=== PATIENT | male | born 1985 | race Caucasian/White ===

== ENCOUNTER 2016-10-25 09:45 | Outpatient (CLI) | payer BC ==
[~2016-10-25] VITALS: Ht 188 cm; Wt 104.3 kg
[~2016-10-25 09:45] MED LIST: HYDR-3729 PO; LORA10TA76 PO
--- OUTSIDE RECORDS SUMMARY | 2016-10-25 09:48 | XMS REPORT | Continuity of Care Document ---
Author Author [facility] Organization [facility] Address Unknown Phone Unavailable Care Team Providers Care Gold Letterer Name Role Phone TAMARA SCHMIDT DO PCP Insurance Providers Payer Name Policy Number Subscriber Name Relationship [facility] [id number] Karime Peña 18 Self / Same As Patient Advance Directives Directive Response Recorded Date/Time Advance Directives No 01/29/16 1:41pm Health Care Power of Pipeline Dispatcher No 01/29/16 1:41pm Organ Donor No 01/29/16 1:41pm Resuscitation Status Full Code 01/29/16 1:41pm Problems No problem information available. Medications Current Home Medications Medication Dose Units Route Directions Days/Qty Instructions Start Date Loratadine 10 Mg 10 Mg Oral Daily 07/19/14 Hydrocodone/Acetaminophen 1 Each 1 Tab Oral Every 4HRS as needed for Pain 07/19/14 Social History Social History Problem Response Recorded Date/Time Recent Foreign Travel No 01/29/2016 1:40pm Hospital Discharge Instructions No hospital discharge instructions. Plan of Care Discharge Date 01/29/16 2:06pm Instructions/Education Provided DR. CHARLES-POST EPIDURAL INST Prescriptions See Medication Section Functional Status No functional status results. Allergies, Adverse Reactions, Alerts Allergen Type Severity Reaction Status Last Updated Penicillins ([id number]) Allergy Unknown Active 01/08/07 Immunizations No immunization records. Vital Signs Acute Vital Signs Vital Response Date/Time Temperature (Fahrenheit) 97.0 degrees F (97.6 - 99.5) 01/29/2016 1:42pm Temperature (Calculated Celsius) 36.12244 degrees C (36.4 - 37.5) 01/29/2016 1:42pm Temperature Source Tympanic 01/29/2016 1:42pm Pulse Rate (adult) 70 bpm (60 - 90) 01/29/2016 2:03pm Respiratory Rate 17 bpm (12 - 24) 01/29/2016 2:03pm O2 Sat by Pulse Oximetry 99 % (88 - 100) 01/29/2016 2:03pm Blood Pressure 149/94 mm Hg 01/29/2016 2:03pm Blood Pressure Mean 104 mm Hg 01/29/2016 1:42pm Pain Pain Intensity 6 01/29/2016 2:03pm Height (Feet) 6 feet 01/29/2016 1:41pm Height (Inches) 1.00 inches 01/29/2016 1:41pm Height (Calculated Centimeters) 185.850367 cm 01/29/2016 1:41pm Weight (Pounds) 250 pounds 01/29/2016 1:41pm Weight (Ounces) 0.0 oz 01/29/2016 1:41pm Weight (Calculated Grams) 240629.094 gm 01/29/2016 1:41pm Weight (Calculated Kilograms) 113.812045 kilograms 01/29/2016 1:41pm Calculated BMI 33.0 01/29/2016 1:41pm Results No known relevant diagnostic tests, laboratory data and/or discharge summary. Procedures No known history of procedures. Encounters Encounter Location Arrival/Admit Date Discharge/Depart Date Attending Provider Departed Clinic [facility] 01/29/16 1:17pm 01/29/16 2: 06pm WEN CHARLES MD
[2016-10-25] MEDS ORDERED: BUPIVACAINE 0.25% 30 ML (SENSORCAINE) VIAL ONE (10:17)
[2016-10-25] MEDS ORDERED: TRIAMCINOLONE ACET (KENALOG-40) 40 MG/ML 1 ML VIAL ONE (10:17)
[2016-10-25 13:03] VITALS: BP 156/103
[2016-10-25 13:42] VITALS: BP 159/98
--- NOTE | 2016-10-25 14:51 | Pain Medicine-Procedure ---
Procedure Pre-Op/Post-Op Diagnosis Diagnosis: disc disorder with radiculopathy, lumbar Indications for Operation low back pain Attending Surgeon Trish Procedure Date of Service: Oct 25, 2016 PROCEDURE: Caudal Epidural Steroid Injection with catheter under Flouroscopic Guidance PROCEDURE NOTE: After obtaining written informed consent patient was taken to the procedure room. Vital signs were monitored through out the procedure. A time out was performed. The patient was placed in the prone position on fluoroscopy table. The lower back above the caudal space was prepped with chloraprep and draped in the usual sterile fashion. The skin over the sacral hiatus was identified under fluoroscopic guidance and infiltrated with 1% lidocaine for local anesthesia via 25 gauge needle. An 17-gauge epimed needle was used to access the epidural space under fluoroscopic guidance and was then advanced into the epidural space under fluoroscopic guidance in the AP view. The epimed catheter was then advanced under flourospopic guidance to the L5-S1 interspace. There was no paresthesia with catheter placement. After negative aspiration 1 cc of the contrast dye was injected through the needle with good spread of the medication in the epidural space at the appropriate levels. Again, after negative aspiration, 80 mg of kenalog with 2 cc of 0.25% marcaine and 2 mL's of preservative free normal saline was injected. There was no evidence of CSF, paresthesia or heme during the procedure. The catheter and needle were withdrawn as a unit and the tip was noted to be intact upon removal. Skin was cleaned and a sterile dressing was applied. Following the procedure the patient's vital signs were stable. The patient was discharged home after a brief period of observation with no new neuologic deficits. Complications none WEN CHARLES MD Oct 25, 2016 2:51 pm
== END 2016-10-25 13:44 | disposition home or self-care (01) ==
LOC: CARD 09:45
PROVIDERS: ATTEND Pain Medicine Pain Medicine
DX: M51.16 Intervertebral disc disorders with radiculopathy, lumbar region (principal); M96.1 Postlaminectomy syndrome, not elsewhere classified
CPT/HCPCS: 62323

== ENCOUNTER 2016-12-05 20:02 | Emergency (ER) | payer BC ==
[~2016-12-05] VITALS: Ht 185.4 cm; Wt 113.4 kg
[2016-12-05] MEDS ORDERED: LIDOCAINE 2% 20 ML (XYLOCAINE) VIAL ONE (20:38)
[2016-12-05] MEDS ORDERED: RX-TRIMETH/SULFA. 160-800 MG (BACTRIM DS) TAB PPK#2 PO ONE (21:10)
[2016-12-05] MEDS ORDERED: RX-NAPROXEN (NAPROSYN) 250 MG TAB PPK#4 PO ONE (21:10)
[2016-12-05] MEDS ORDERED: RX-NAPROXEN (NAPROSYN) 250 MG TAB PPK#4 PO STA (21:11)
[2016-12-05] MEDS ORDERED: RX-TRIMETH/SULFA. 160-800 MG (BACTRIM DS) TAB PPK#2 PO STA (21:11)
[2016-12-05] MEDS ORDERED: NAPR500T3 PO (21:14)
[2016-12-05] MEDS ORDERED: SULF1TAB35 PO (21:14)
--- NOTE | 2016-12-05 21:14 | ED Upper Extremity ---
General Chief Complaint: Laceration Stated Complaint: R HAND CUT Nursing Triage Note: PT HAS LAC TO L THUMB FROM WINDOW BREAKING Nursing Sepsis Screen: No Definite Risk Source: patient History of Present Illness Time seen by provider: 20:30 Initial Comments PT STATES HE WAS HOLDING A WINDOW AND IT BROKE, CUTTING BOTH OF HIS THUMBS OCCURRED TODAY AT HOME AROUND 1500 INITIALLY WENT TO [facility], AND HAD 3 SUTURES PLACED IN LEFT THUMB, BUT STATES HE WAS SENT HERE BECAUSE THE LACERATION ON RIGHT THUMB WAS TOO DEEP PT DID RECEIVE A TETANUS VACCINATION AT [facility] NO PARESTHESIAS OR MOTOR DEFICITS NO PRIOR INJURY TO RIGHT THUMB PT IS RIGHT HANDED Allergies and Home Medications Allergies Coded Allergies: Penicillins (Verified Allergy, Unknown, 01/08/07) Home Medications Hydrocodone/Acetaminophen 1 Each Tablet, 1 TAB PO Q4H PRN for PAIN, (Reported) Loratadine 10 Mg Tablet, 10 MG PO DAILY, (Reported) Naproxen 500 Mg Tablet, 500 MG PO BID, #20 Prescribed by: LIDIA KUNZ on 12/05/162113 Sulfamethoxazole/Trimethoprim 1 Each Tablet, 1 EACH PO BID, #20 Prescribed by: LIDIA KUNZ on 12/05/162113 Constitutional: no symptoms reported Musculoskeletal: see HPI Skin: see HPI Psychiatric/Neurological: No Symptoms Reported, Anxiety Past Qvacroy-Scbtjl-Xuiuep Hx Patient Social History Alcohol Use: Denies Use Recreational Drug Use: Yes (POT OCCSIONALLY) Smoking Status: Never a Smoker Recent Foreign Travel: No Contact w/Someone Who Travel: No Recent Infectious Disease Expo: No Recent Hopitalizations: No Immunizations Up To Date Tetanus Booster (TDap): Less than 5yrs Surgeries HX Surgeries: No Respiratory Hx Respiratory Disorders: No Cardiovascular Hx Cardiac Disorders: No Neurological Hx Neurological Disorders: No Genitourinary Hx Genitourinary Disorders: No Gastrointestinal Hx Gastrointestinal Disorders: No Musculoskeletal Hx Musculoskeletal Disorders: No Endocrine Hx Endocrine Disorders: No HEENT HX ENT Disorders: No Cancer Hx Cancer: No Psychosocial Hx Psychiatric Problems: No Integumentary HX Skin/Integumentary Disorder: No Blood Transfusions Hx Blood Disorders: No Physical Exam Vital Signs Vital Sign - Last 12Hours 12/05/16 12/05/16 20:30 21:26 Temp 97.4 Pulse 76 Resp 16 B/P (MAP) 161/106 Pulse Ox 99 Capillary Refill : Less Than 3 Seconds General Appearance: WD/WN, no apparent distress, other (ANXIOUS) Hand: laceration (RIGHT THUMB WITH 2 CM LACERATION TO PAD OF THUMB. HAS MILD OOZING, CONTROLLED BY PRESSURE. MOTOR/SENSORY/VASCULAR INTACT. LEFT THUMB PAD WITH REPAIRED 2 CM LACERATION WITH 3 SUTURES. NO BLEEDING. 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, no motor/sensory deficits, alert, oriented x 3 Skin: normal color, warm/dry, other (LACERATION ABOVE) Laceration Repair : Other Wound Location LEFT THUMB Wound Length (cm): 2 Wound's Depth, Shape: linear, sub Q Wound Explored: clean Betadine Prep?: No (BETASEPT) Anesthesia: Lidocaine w/ Epi Suture: Ethlion Suture Size: 4-0 Number of Sutures: 5 Sterile Dressing Applied?: Yes Progress/Results/Core Measures Results/Orders My Orders Orders - LIDIA KUNZ DO Lidocaine 2% Injection 20 Ml (Xylocaine (12/05/16 20:38) Rx-Trimeth/Sulfameth Ds Tab (Rx-Bactrim/ (12/05/16 21:11) Rx-Naproxen (Rx-Naprosyn) (12/05/16 21:11) Wound Dressing-Ed (12/05/16 21:14) Rx-Naproxen (Rx-Naprosyn) (12/05/16 21:10) Rx-Trimeth/Sulfameth Ds Tab (Rx-Bactrim/ (12/05/16 21:10) Medications Given in ED Current Medications Medications Dose Ordered Sig/Oz Route Start Time Stop Time Status Last Admin Dose Admin Lidocaine HCl 20 ml STK-MED ONCE .ROUTE 12/05/16 20:38 12/05/16 20:42 DC 12/05/16 20:54 10 ML Vital Signs/I&O Vital Sign - Last 12Hours 12/05/16 12/05/16 20:30 21:26 Temp 97.4 97.4 Pulse 76 76 Resp 16 16 B/P (MAP) 161/106 Pulse Ox 99 Blood Pressure Mean: 124 Departure Impression Impression: Primary Impression: Laceration of right thumb Disposition: 01 HOME, SELF-CARE Condition: Stable Departure-Patient Inst. Referrals: TAMARA SCHMIDT DO (PCP/Family) Primary Care Physician Patient Instructions: Laceration Repair With Stitches (DC) Add. Discharge Instructions: LEAVE DRESSING IN PLACE FOR 24 HOURS, THEN CLEAN TWICE A DAY WITH ANTIBACTERIAL SOAP AND WATER ON A Q-TIP, APPLY FRESH DRESSING TWICE A DAY OTHERWISE KEEP CLEAN AND DRY SUTURES OUT IN 10 DAYS--RETURN TO ER FOR REMOVAL All discharge instructions reviewed with patient and/or family. Voiced understanding. Scripts Naproxen (Naproxen) 500 Mg Tablet 500 MG PO BID, #20 TAB Prov: LIDIA KUNZ DO 12/05/16 Sulfamethoxazole/Trimethoprim (Bactrim Ds Tablet) 1 Each Tablet 1 EACH PO BID, #20 TAB Prov: LIDIA KUNZ DO 12/05/16 LIDIA KUNZ DO Dec 05, 2016 21:14
[2016-12-05 21:26] VITALS: BP 149/88
== END 2016-12-05 21:26 | disposition home or self-care (01) ==
LOC: EDUNIT# 20:02 → ER 20:04
DX: S61.011A Laceration without foreign body of right thumb without damage to nail, initial encounter (principal); W25.XXXA Contact with sharp glass, initial encounter; Y99.8 Other external cause status

== ENCOUNTER 2019-07-16 14:21 | Emergency (ER) | payer SELFPAY ==
[~2019-07-16] VITALS: Ht 187 cm; Wt 113.0 kg
[~2019-07-16 14:21] MED LIST changes: +NAPR-915 PO; +SULF1TAB35 PO
--- NOTE | 2019-07-16 14:35 | ED Lower Extremity ---
General Chief Complaint: Laceration Stated Complaint: L FOOT PAIN Nursing Triage Note: ARRIVED VIA AMB TO ROOM 07 WITH COMPLAINTS OF LACERATION TO LEFT GREAT TOE AFTER HIS CHAINSAW SLIPPED AND HIT HIS FOOT. Nursing Sepsis Screen: No Definite Risk Source: patient Exam Limitations: no limitations History of Present Illness Date Seen by Provider: Jul 16, 2019 Time Seen by Provider: 14:32 Initial Comments To ER with laceration to left great toe after his chainsaw slipped just prior to arrival cutting through his boot his sock and into the toe. Onset: just prior to arrival Severity: moderate Pain/Injury Location: left 1st toe Modifying Factors: Worse With Movement Allergies and Home Medications Allergies Coded Allergies: Penicillins (Verified Allergy, Unknown, 01/08/07) Home Medications Cephalexin 500 Mg Capsule, 500 MG PO QID Prescribed by: FERMÍN LOZANO on 07/16/19 1520 Ciprofloxacin HCl 500 Mg Tablet, 500 MG PO BID Prescribed by: FERMÍN LOZANO on 07/16/19 1520 Hydrocodone/Acetaminophen 1 Each Tablet, 1 TAB PO Q4-6HR Prescribed by: FERMÍN LOZANO on 07/16/19 1520 Patient Home Medication List Home Medication List Reviewed: Yes Review of Systems Constitutional: see HPI EENTM: see HPI Respiratory: no symptoms reported Cardiovascular: no symptoms reported Genitourinary: no symptoms reported Musculoskeletal: no symptoms reported Skin: no symptoms reported Psychiatric/Neurological: No Symptoms Reported Past Vohhmkw-Tauabl-Heeplh Hx Patient Social History Recent Foreign Travel: No Contact w/Someone Who Travel: No Recent Infectious Disease Expo: No Recent Hopitalizations: No Immunizations Up To Date Tetanus Booster (TDap): Less than 5yrs Physical Exam Vital Signs Vital Signs - First Documented 07/16/19 14:26 Temp 37.0 Pulse 121 Resp 16 B/P (MAP) 183/129 (147) Pulse Ox 98 O2 Delivery Room Air Capillary Refill : Less Than 3 Seconds Height, Weight, BMI Height: 6'1.00" Weight: 250lbs. 0.0oz. 113.192066et; 32.00 BMI Method:Stated General Appearance: WD/WN, no apparent distress Respiratory: no respiratory distress, no accessory muscle use Hips: bilateral hip non-tender, bilateral hip normal inspection, bilateral hip normal range of motion Legs: bilateral leg non-tender, bilateral leg normal inspection, bilateral leg normal range of motion Knees: bilateral knee non-tender, bilateral knee normal inspection, bilateral knee normal range of motion Ankles: bilateral ankle non-tender, bilateral ankle normal inspection, bilateral ankle normal range of motion Feet: left foot pain, left foot soft tissue tenderness, left foot other (3-4 cm laceration extending from the distal medial great toe left foot to the proximal aspect left toe lateral side.) Procedures/Interventions Wound Location: Lower Extremities Wound Length (cm): 3 Wound's Depth, Shape: linear, sub Q, tendon Wound Explored: clean Irrigated w/ Saline (ccs): 200 Anesthesia: 1% Lidocaine Suture: Prolene Suture Size: 4-0 Number of Sutures: 4 Layer Closure?: 1 Number Deep Layer Sutures: 0 Progress Local anesthesia using 1% lidocaine without epinephrine totaling 4 mL. Wound then scrubbed with chlorhexidine/saline then irrigated with 200 mL of the same. There is a visualized extensor tendon laceration partial, however he maintains ability to dorsiflex the great toe and normal sensation of the toe distally. This was closed with 4 simple sutures loosely size 4-0 Prolene, wrapped with antibiotic ointment and gauze and Coban. Progress/Results/Core Measures Results/Orders My Orders Orders - FERMÍN LOZANO APRN Lidocaine 1% Inj 20 Ml (Xylocaine 1% Inj (07/16/19 14:45) Hydrocodone/Apap 5/325 Tablet (Lortab 5 (07/16/19 14:45) Medications Given in ED Current Medications Medications Dose Ordered Sig/Oz Route Start Time Stop Time Status Last Admin Dose Admin Acetaminophen/ Hydrocodone Bitart 1 tab ONCE ONCE PO 07/16/19 14:45 07/16/19 14:46 DC 07/16/19 14:35 1 TAB Lidocaine HCl 20 ml ONCE ONCE INJ 07/16/19 14:45 07/16/19 14:46 DC 07/16/19 14:35 20 ML Vital Signs/I&O 07/16/19 07/16/19 14:26 15:25 Temp 37.0 37.0 Pulse 121 81 Resp 16 16 B/P (MAP) 183/129 (147) 135/81 (147) Pulse Ox 98 98 O2 Delivery Room Air Room Air Blood Pressure Mean: 147 POS Departure Communication (Admissions) Recommended x-ray of the foot to rule out bony injury, patient states "it is not broken, I don't need an x-ray". He doesn't want the expense of the x-ray either. He just wants it stitched up and sent home. Impression Primary Impression: Toe laceration Qualified Codes: S91.112A - Laceration without foreign body of left great toe without damage to nail, initial encounter Disposition: HOME, SELF-CARE Condition: Stable Departure-Patient Inst. Decision time for Depature: 15:18 Referrals: QUIANA ORANTES DPM, BRIAN J MD NO,LOCAL PHYSICIAN (PCP) Primary Care Physician ADAL BUNCH MD, CORIN Q DPM ZAFUTA, MICHAEL P MD Patient Instructions: Laceration Repair With Stitches (DC), Wound Care Add. Discharge Instructions: 1. Return to ER promptly for any redness swelling or sign of infection 2. Antibiotics as directed and pain medication as directed. Change the dressing daily for one week. After this you can place a simple Band-Aid over this instead of the bulky dressing materials that she were sent home with. You can shower leading water run over this after removing the dressing tonight, but don't soak it in water such as a hot tub bath tub or swimming pool. Otherwise return to the emergency room in 10-12 days to have the stitches removed. I do suspect a partial extensor tendon injury of the great toe, you can call one of the orthopedists listed for follow-up. All discharge instructions reviewed with patient and/or family. Voiced understanding. Scripts Ciprofloxacin HCl (Ciprofloxacin HCl) 500 Mg Tablet 500 MG PO BID, #14 TAB Prov: FERMÍN LOZANO APRN 07/16/19 Cephalexin (Keflex) 500 Mg Capsule 500 MG PO QID, #28 CAP Prov: FERMÍN LOZANO APRN 07/16/19 Hydrocodone/Acetaminophen (Benedict 5-325 Tablet) 1 Each Tablet 1 TAB PO Q4-6HR for Pain MDD 10 TABS for 7 Days, #14 TAB Prov: FERMÍN LOZANO APRN 07/16/19 FERMÍN LOZANO APRN Jul 16, 2019 14:35 POS
[2019-07-16] MEDS ORDERED: HYDROcodone/APAP 5 MG/325 MG (LORTAB) TAB PO ONE (14:45)
[2019-07-16] MEDS ORDERED: LIDOCAINE 1% INJ 20 ML 20 ML VIAL INJ ONE (14:45)
[2019-07-16] MEDS ORDERED: HYDR-4226 PO (15:20)
[2019-07-16] MEDS ORDERED: CEPH-507 PO (15:20)
[2019-07-16] MEDS ORDERED: CIPR500T4 PO (15:20)
--- NOTE | 2019-07-16 15:20 | NUR ---
FERMÍN REPORTS PT REFUSED X-RAY.
[2019-07-16 15:25] VITALS: BP 135/81
== END 2019-07-16 15:25 | disposition home or self-care (01) ==
LOC: EDUNIT# 14:21 → ER 14:23
DX: S91.112A Laceration without foreign body of left great toe without damage to nail, initial encounter (principal); Z88.0 Allergy status to penicillin; W29.3XXA Contact with powered garden and outdoor hand tools and machinery, initial encounter
CPT/HCPCS: 12041

== ENCOUNTER 2019-10-30 02:18 | Emergency (ER) | payer SELFPAY ==
[~2019-10-30] VITALS: Ht 187.9 cm; Wt 113.3 kg
[~2019-10-30 02:18] MED LIST changes: +CEPH-507 PO; +CIPR500T4 PO; +HYDR-4226 PO
[2019-10-30] MEDS ORDERED: LIDOCAINE 1% INJ 20 ML 20 ML VIAL INJ ONE (02:30)
--- NOTE | 2019-10-30 03:08 | ED Lower Extremity ---
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 Patient is intoxicated and was working in his shop when the incident happened. He has a gaping laceration on the dorsum of the left hand that is actively bleeding and more minor lacerations over the dorsum of the left fifth finger and the dorsum of the right middle finger. He has minor abrasion to the left thigh. He reports being up-to-date on his tetanus immunization. Allergies and Home Medications Allergies Coded Allergies: Penicillins (Verified Allergy, Unknown, 01/08/07) Home Medications Cephalexin 500 Mg Capsule, 500 MG PO QID Prescribed by: FERMÍN LOZANO on 07/16/19 1520 Ciprofloxacin HCl 500 Mg Tablet, 500 MG PO BID Prescribed by: FERMÍN LOZANO on 07/16/19 1520 Hydrocodone/Acetaminophen 1 Each Tablet, 1 TAB PO Q4-6HR Prescribed by: FERMÍN LOZANO on 07/16/19 1520 Patient Home Medication List Home Medication List Reviewed: Yes Review of Systems Constitutional: see HPI EENTM: no symptoms reported Respiratory: no symptoms reported Cardiovascular: no symptoms reported Gastrointestinal: no symptoms reported Genitourinary: no symptoms reported Musculoskeletal: see HPI Skin: see HPI Psychiatric/Neurological: See HPI Past Ngejfkh-Qvhybz-Gzskdg Hx Past Med/Social Hx: Reviewed Nursing Past Med/Soc Hx Patient Social History Drug of Choice: POT Recent Foreign Travel: No Contact w/Someone Who Travel: No Recent Infectious Disease Expo: No Recent Hopitalizations: No Immunizations Up To Date Tetanus Booster (TDap): Less than 5yrs Past Medical History Surgeries: No Respiratory: No Cardiac: No Neurological: No Gastrointestinal: No Musculoskeletal: No Endocrine: No Cancer: No Psychosocial: No Integumentary: No Blood Disorders: No Physical Exam Vital Signs Vital Signs - First Documented 10/30/19 10/30/19 02:21 03:11 Temp 37.0 Pulse 92 Resp 18 B/P (MAP) 145/97 (113) Pulse Ox 97 Capillary Refill : Less Than 3 Seconds Height, Weight, BMI Height: 6'1.00" Weight: 250lbs. 0.0oz. 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 There were no exposed tendons on exploration of the wounds. Patient had full flexion and extension range of motion in the hands and fingers. Distal sensation and capillary refill was intact. Procedures/Interventions Wound Location: Upper Extremities Other Wound Location Dorsum of left hand Wound Length (cm): 3 Wound's Depth, Shape: linear, sub Q Wound Explored: clean Irrigated w/ Saline (ccs): 300 Betadine Prep?: Yes Anesthesia: 1% Lidocaine Volume Anesthetic (ccs): 3 Suture: Prolene Suture Size: 4-0 Number of Sutures: 5 Sterile Dressing Applied?: Yes Wound Location: Upper Extremities Other Wound Location Dorsum of the left fifth finger Wound Length (cm): 1.5 Wound's Depth, Shape: linear, irregular, sub Q Wound Explored: clean Irrigated w/ Saline (ccs): 200 Betadine Prep?: Yes Anesthesia: 1% Lidocaine Suture: Prolene Suture Size: 4-0 Number of Sutures: 2 Sterile Dressing Applied?: Yes Progress/Results/Core Measures Results/Orders My Orders Orders - BLU VALENTINO MD Lidocaine 1% Inj 20 Ml (Xylocaine 1% Inj (10/30/19 02:30) Medications Given in ED Current Medications Medications Dose Ordered Sig/Oz Route Start Time Stop Time Status Last Admin Dose Admin Lidocaine HCl 20 ml ONCE ONCE INJ 10/30/19 02:30 10/30/19 02:31 DC 10/30/19 02:30 20 ML Vital Signs/I&O 10/30/19 10/30/19 02:21 03:11 Temp 37.0 Pulse 92 94 Resp 18 18 B/P (MAP) 145/97 (113) 136/91 (113) Pulse Ox 97 97 Blood Pressure Mean: 113 Progress Progress Note : Progress Note Bilateral hand x-rays were ordered to rule out fracture or foreign body. Patient was rather tender in the areas around his lacerations. However, patient absolutely refused x-rays. The 2 lacerations on the left hand were anesthetized with lidocaine, scrubbed with normal saline and chlorhexidine, and irrigated with normal saline. They were then repaired with 4-0 Prolene. The flap laceration on the right middle finger was cleaned with chlorhexidine and normal saline and irrigated with normal saline and then covered with antibiotic ointment and dressing. Patient reported being certain of up-to-date status on tetanus immunization. Departure Impression Primary Impression: Laceration of left hand Qualified Codes: S61.412A - Laceration without foreign body of left hand, initial encounter Additional Impressions: Laceration of right hand Qualified Codes: S61.411A - Laceration without foreign body of right hand, initial encounter Alcohol intoxication Qualified Codes: F10.920 - Alcohol use, unspecified with intoxication, unco mplicated Abrasion, left thigh, initial encounter Disposition: 01 HOME, SELF-CARE Condition: Improved Departure-Patient Inst. Decision time for Depature: 03:05 Referrals: NO,LOCAL PHYSICIAN (PCP/Family) Primary Care Physician Patient Instructions: Laceration Repair With Stitches (DC) Add. Discharge Instructions: Monitor your wounds for signs of infection such as increasing redness, increasing swelling, puslike drainage, or fever. Return to care promptly. See symptoms. Keep your wounds clean and dry. Cover when working or when in dirty environments. You may shower and allow soapy water to run over the wound but do not scrub directly on the stitches and do not submerge until stitches are removed. You may take Tylenol and/or ibuprofen for pain. Return in 8-10 days to have sutures removed. You do not need an appointment. All discharge instructions reviewed with patient and/or family. Voiced understanding. BLU VALENTINO MD Oct 30, 2019 03:08
[2019-10-30 03:11] VITALS: BP 136/91
== END 2019-10-30 03:11 | disposition home or self-care (01) ==
LOC: EDUNIT# 02:18 → ER 02:20
DX: S61.412A Laceration without foreign body of left hand, initial encounter (principal); S61.217A Laceration without foreign body of left little finger without damage to nail, initial encounter; S61.212A Laceration without foreign body of right middle finger without damage to nail, initial encounter; S70.312A Abrasion, left thigh, initial encounter; F10.129 Alcohol abuse with intoxication, unspecified; Z88.0 Allergy status to penicillin; W31.89XA Contact with other specified machinery, initial encounter; Y92.59 Other trade areas as the place of occurrence of the external cause
CPT/HCPCS: 12002

== ENCOUNTER 2019-12-12 22:42 | Emergency (ER) | payer SELFPAY ==
[~2019-12-12] VITALS: Ht 187 cm; Wt 114.2 kg
[2019-12-12] MEDS ORDERED: CEFEPIME INJECTION 2,000 MG in WATER (STERILE) FOR INJECTION 10 ML IV ONE (23:00)
[2019-12-12] MEDS ORDERED: VANCOMYCIN INJECTION 1,000 MG in NS (IVPB) 250 ML IV SCH (23:00)
[2019-12-12 23:09] LABS: BASOPHILS % (AUTO) 0 % (0-10); EOSINOPHILS # (AUTO) 0.5 10^3/uL (0.0-0.3); EOSINOPHILS % (AUTO) 5 % (0-10); HEMATOCRIT 44 % (40-54); HEMOGLOBIN 15.4 G/DL (13.3-17.7); LYMPHOCYTES % (AUTO) 20 % (12-44); MEAN CORPUSCULAR HEMOGLOBIN 34 PG (25-34); MEAN CORPUSCULAR HGB CONC 35 G/DL (32-36); MEAN CORPUSCULAR VOLUME 97 FL (80-99); MEAN PLATELET VOLUME 10.2 FL (7.4-10.4); MONOCYTES # (AUTO) 0.9 X 10^3 (0.0-1.0); MONOCYTES % (AUTO) 9 % (0-12); NEUTROPHILS # (AUTO) 6.8 X 10^3 (1.8-7.8); NEUTROPHILS % (AUTO) 66 % (42-75); PLATELET COUNT 275 10^3/uL (130-400); RED CELL DISTRIBUTION WIDTH 12.7 % (10.0-14.5); WHITE BLOOD COUNT 10.3 10^3/uL (4.3-11.0)
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
[2019-12-12 23:20] LABS: INR 0.9 (0.8-1.4); PROTHROMBIN TIME PATIENT 12.5 SEC (12.2-14.7)
[2019-12-12 23:21] LABS: ALBUMIN 3.9 GM/DL (3.2-4.5); CHLORIDE 106 MMOL/L (98-107); POTASSIUM 3.5 MMOL/L (3.6-5.0); SODIUM 139 MMOL/L (135-145)
[2019-12-12 23:22] LABS: CALCIUM 9.8 MG/DL (8.5-10.1)
[2019-12-12 23:24] LABS: GLUCOSE 118 MG/DL (70-105); TOTAL PROTEIN 7.1 GM/DL (6.4-8.2)
[2019-12-12 23:25] LABS: BILIRUBIN,TOTAL 0.2 MG/DL (0.1-1.0); CARBON DIOXIDE 19 MMOL/L (21-32)
[2019-12-12 23:27] LABS: ALKALINE PHOSPHATASE 61 U/L (40-136)
[2019-12-12 23:28] LABS: CREATININE SERUM 0.92 MG/DL (0.60-1.30); GFR ESTIMATED > 60
[2019-12-12 23:29] LABS: BUN/CREATININE RATIO 8
[2019-12-12 23:30] LABS: ALANINE AMINOTRANSFERASE 29 U/L (0-55); MAGNESIUM 1.9 MG/DL (1.6-2.4)
[2019-12-12 23:32] LABS: ACETAMINOPHEN < 10 UG/ML (10-30)
[2019-12-12 23:34] LABS: ERYTHROCYTE SEDIMENTATION RATE 18 MM/HR (0-15)
[2019-12-13 00:22] LABS: CLARITY,URINE CLEAR; COLOR,URINE YELLOW; GLUCOSE, URINE (UA) NEGATIVE (NEGATIVE); PH,URINE 5.5 (5-9); PROTEIN,URINE NEGATIVE (NEGATIVE)
[2019-12-13 00:23] LABS: BACTERIA,URINE NEGATIVE /HPF; BILIRUBIN,URINE NEGATIVE (NEGATIVE); KETONES,URINE NEGATIVE (NEGATIVE); LEUKOCYTE ESTERASE ,URINE NEGATIVE (NEGATIVE); NITRITE,URINE NEGATIVE (NEGATIVE); SQUAMOUS EPITHELIAL CELL,UR 0-2 /HPF
[2019-12-13 00:36] VITALS: BP 140/116
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
[2019-12-13 00:43] LABS: AMPHETAMINE SCREEN, URINE NEGATIVE (NEGATIVE); BARBITURATE SCREEN URINE NEGATIVE (NEGATIVE); BENZODIAZEPINES SCREEN URINE NEGATIVE (NEGATIVE); CANNABINOID SCREEN, URINE POSITIVE (NEGATIVE); COCAINE SCREEN URINE NEGATIVE (NEGATIVE); METHADONE STAT NEGATIVE (NEGATIVE); METHAMPHETAMINE SCREEN URINE S NEGATIVE (NEGATIVE); OPIATE SCREEN URINE NEGATIVE (NEGATIVE); OXYCODONE STAT NEGATIVE (NEGATIVE); PROPOXYPHENE STAT NEGATIVE (NEGATIVE); TRICYCLIC ANTIDEPRESSANTS SCRE NEGATIVE (NEGATIVE)
--- NOTE | 2019-12-13 06:11 | Diagnostic Imaging Report ---
INDICATION: Wound in the right antecubital soft tissues. COMPARISON: None available. TECHNIQUE: 3 views of the right elbow were obtained. FINDINGS: No radiopaque foreign body or soft tissue gas. No osseous erosions or fracture. Joint spaces are well-maintained. No radiographic features of elbow joint effusion. IMPRESSION: 1. Soft tissue swelling without radiopaque foreign body. 2. No radiographic features of osteomyelitis. Dictated by: Dictated on workstation # [id number]
[2019-12-13] MEDS ORDERED: CLIN300C11 PO (09:39)
== END 2019-12-13 00:36 | disposition left against medical advice (07) ==
LOC: EDUNIT# 22:42 → ER 22:45
DX: L03.113 Cellulitis of right upper limb (principal); F10.220 Alcohol dependence with intoxication, uncomplicated; F12.90 Cannabis use, unspecified, uncomplicated; Z88.0 Allergy status to penicillin; F17.210 Nicotine dependence, cigarettes, uncomplicated; M54.9 Dorsalgia, unspecified; G89.29 Other chronic pain
CPT/HCPCS: 36415; 73080; 80053; 80306; 80320; 80329; 81000; 83605; 83735; 85025; 85610; 85652; 85730; 86141; 87040; 87070; 87077; 87186; 87205

== ENCOUNTER 2019-12-13 09:06 | Emergency (ER) | payer SELFPAY ==
[~2019-12-13] VITALS: Ht 185 cm; Wt 108.0 kg
--- NOTE | 2019-12-13 09:31 | ED Integumentary General ---
General Stated Complaint: R ARM INFECTION Source: patient Exam Limitations: no limitations History of Present Illness Date Seen by Provider: Dec 13, 2019 Time Seen by Provider: 09:26 Initial Comments 34-year-old male presents with abscess in his right antecubital space with right arm cellulitis. Patient was seen in the ER last night and was being admitted. He received cefepime and Vanco. Patient reports he got up and suddenly left because "he has a silent alarm on his garage and some he is breaking in." Patient comes back today requesting antibiotics. Patient states that he does not want to stay but would like to do antibiotics outside the hospital. Patient reports that he's had significant improvement with antibiotics he received in the ER last night. Patient with no fevers chills or other systemic complaints. Allergies and Home Medications Allergies Coded Allergies: Penicillins (Verified Allergy, Unknown, 01/08/07) Home Medications Cephalexin 500 Mg Capsule, 500 MG PO QID Prescribed by: FERMÍN LOZANO on 07/16/19 1520 Ciprofloxacin HCl 500 Mg Tablet, 500 MG PO BID Prescribed by: FERMÍN LOZANO on 07/16/19 1520 Hydrocodone/Acetaminophen 1 Each Tablet, 1 TAB PO Q4-6HR Prescribed by: FERMÍN LOZANO on 07/16/19 1520 Patient Home Medication List Home Medication List Reviewed: Yes Review of Systems Review of Systems Constitutional: No chills, No fever Respiratory: no symptoms reported Cardiovascular: no symptoms reported Gastrointestinal: no symptoms reported Musculoskeletal: no symptoms reported Skin: see HPI Past Csspdau-Vjorbr-Svgqgt Hx Past Med/Social Hx: Reviewed Nursing Past Med/Soc Hx Patient Social History Alcohol Beverage of Choice: Rum Drug of Choice: COCAINE, THC, OPIATES Type Used: Cigarettes 2nd Hand Smoke Exposure: No Recent Foreign Travel: No Contact w/Someone Who Travel: No Recent Hopitalizations: No Immunizations Up To Date Tetanus Booster (TDap): Less than 5yrs PED Vaccines UTD: Yes Past Medical History Surgeries: Yes (BACK SURGERY X2;"4 HERNIA SURGERIES"-INGUINAL HERNIA 07/2014; -12/2006) Abdominal, Orthopedic Respiratory: No Cardiac: No Neurological: No Genitourinary: No Gastrointestinal: Yes (PT REPORTS "4 HERNIA REPAIRS"-2 WERE DONE HERE-;R 12/2006) Musculoskeletal: Yes (BACK SURGERY X 2) Chronic Back Pain Endocrine: No HEENT: No Cancer: No Psychosocial: No Integumentary: No Blood Disorders: No Physical Exam Vital Signs Capillary Refill : General Appearance: WD/WN, no apparent distress Cardiovascular: normal peripheral pulses, regular rate, rhythm, no edema Respiratory: lungs clear, normal breath sounds Extremities: normal range of motion, non-tender, normal inspection Skin Problem Character: abscess (right antecubital), erythema (right arm) Procedures/Interventions Suture Size: 4-0 Progress/Results/Core Measures Progress Progress Note : Time: 09:36 Progress Note Patient is requesting outpatient antibiotics because her significant improvement. I discussed with him the risks of for going hospital admission. Patient voices understanding. He will return the ER as needed. I will give him a prescription for clindamycin. He should follow-up with his primary care provider as needed. Departure Impression Primary Impression: Cellulitis of right arm Additional Impression: Cutaneous abscess of right upper extremity Disposition: 01 HOME, SELF-CARE Condition: Stable Departure-Patient Inst. Referrals: [facility] (PCP/Family) Primary Care Physician Patient Instructions: Cellulitis (Skin Infection), Adult (DC), Abscess Incision and Drainage Scripts Clindamycin HCl (Clindamycin HCl) 300 Mg Capsule 300 MG PO Q6H for 10 Days, #40 CAP Prov: KRISS BHAT DO 12/13/19 KRISS BHAT DO Dec 13, 2019 09:31
[2019-12-13] MEDS ORDERED: CLIN300C11 PO (09:39)
[2019-12-13 09:47] VITALS: BP 173/122
== END 2019-12-13 09:49 | disposition home or self-care (01) ==
LOC: EDUNIT# 09:06 → ER 09:07
DX: L03.113 Cellulitis of right upper limb (principal); L02.413 Cutaneous abscess of right upper limb; M54.9 Dorsalgia, unspecified; G89.29 Other chronic pain; Z88.0 Allergy status to penicillin